=== PATIENT | male | born 1950 | race Caucasian/White ===

== ENCOUNTER → 2016-11-27 | Outpatient (CLI) | payer MEDICARE, OTHER, MEDICAID ==
[~2016-11-27] MED LIST: AMLO2.5T PO; ASPI81TA11 PO; ATOR10TA15 PO; CALC1TAB42 PO; CARV6.25 PO; ERGO1CAP30 PO; FAMO20TA2 PO; FERR325T PO; FOLI1TAB4 PO; IOHEXOL 350 MG/ML 10 ML VIAL (for RAD DIAG) IV ONE; IPRASOL INH; LOPE7.5C PO; NEBUKIT5; NEBULIZER COMPR1 KIT; NEBULIZER1 MI1; PLAV75TA29 PO; REME15TA PO; REME30TA PO; SINE10100 PO; SODI1TAB PO; THERTAB27 PO; THIA100T PO; TRAZ50TA12 PO; TYLE325T PO; VENTAER INH; [UNRECOGNIZED DRUG - REMARK]
--- NOTE | 2016-11-27 14:52 | RADRPT ---
EXAM DATE/TIME: 11/27/2016 13:38 [place] COMPARISON: CT BRAIN W/O CONTRAST, September 07, 2016, 7:23. INDICATIONS : Occlusion and stenosis of left carotid artery. IV CONTRAST: 74 cc Omnipaque 350 (iohexol) IV RADIATION DOSE: 23.65 CTDIvol (mGy) MEDICAL HISTORY : Hypertension. Gastroesophageal reflux disease. Hypercholesterolemia.Coronary artery disease. SURGICAL HISTORY : None. ENCOUNTER: Initial ACUITY: 3 days PAIN SCALE: 0/10 LOCATION: Left neck TECHNIQUE: Volumetric scanning was performed using a multirow detector CT scanner. The data was post processed with a variety of visualization algorithms including full-volume maximum intensity projection, multip lanar sliding thin-slab reformation, curved-planar reformation, and surface-rendering techniques. Us ing automated exposure control and adjustment of the mA and/or kV according to patient size, radiatio n dose was kept as low as reasonably achievable to obtain optimal diagnostic quality images. FINDINGS: AORTIC ARCH: There is a three-vessel origin of the great vessels from the arch. There is moderate narrowing at the ostia of the left common carotid. The innominate and subclavian appear widely patent. RIGHT CAROTID: The common carotid is widely patent. There is very dense atherosclerotic plaquing at the bifurcation which results in a high-grade stenosis in the origin of the right internal carotid. This is estimated to be in the 70% range are widely patent. LEFT CAROTID: The common carotid is abnormal in appearance right it's course. There is diffuse intimal thickening w ith high grade stenosis in its proximal segment and long segment moderate stenosis up to the bifurcat ion. The bifurcation is severely diseased with high-grade stenosis in the origin of the left internal carotid. The more cephalad portion of left internal carotid is diminutive in size. VERTEBRALS: The left vertebral is the dominant blood supply to the basilar. There is an area of moderate stenosis at its origin. The more cephalad portion of left vertebral is widely patent. The right vertebral is small in caliber but patent throughout its course. CONCLUSION: 1. Right carotid: 2. There is high grade stenosis of the origin the right internal carotid. This is severely calcified and estimated to be in the range of 70% or higher. It is difficult to assess due to the dense calcifi cation. 3. 4. Left carotid: 5. Severely diseased left common carotid with long segment moderate stenosis and a focal area of high -grade stenosis in its mid aspect. The bifurcation is heavily calcified and severely diseased with hi gh-grade stenosis in the origin of the left internal carotid. The distal left internal carotid is dim inutive in size. Gutierrez Jones MD on November 27, 2016 at 14:33 Board Certified Radiologist. This report was verified electronically.
== END ==
LOC: HRAD 12:23
PROVIDERS: ATTEND Thoracic Surgery (Cardiothoracic Vascular Surgery)
DX: I65.23 Occlusion and stenosis of bilateral carotid arteries (principal); K21.9 Gastro-esophageal reflux disease without esophagitis; E78.00 Pure hypercholesterolemia, unspecified
CPT/HCPCS: 70498; Q9967